=== PATIENT | male | born 1970 | race African-American/Black ===

== ENCOUNTER → 2020-12-20 00:51 | Outpatient (CLI) | payer BC, SELFPAY ==
[2020-12-20 19:12] LABS: SARS-CoV-2 RNA PCR Negative
== END ==
PROVIDERS: PCP Emergency Medicine; Visit Provider Internal Medicine Gastroenterology
DX: Z01.812 Encounter for preprocedural laboratory examination (principal); Z20.822 Contact with and (suspected) exposure to COVID-19
CPT/HCPCS: C9803; U0003; U0005

== ENCOUNTER 2020-12-23 01:41 | Day surgery (SDC) | payer BC, SELFPAY ==
[2020-12-11 14:01] VITALS: BMI 43.9
[2020-12-23 09:17] LABS: Glucose Point of Care 192 (65-105)
[2020-12-23 09:20] VITALS: BP 155/92; PULSE 77; RESP 20; TEMP 36.6; O2SAT 96; BMI 44.3
[2020-12-23] MEDS: LACTATED RINGERS 1,000 ML 150 ML IV CONT (09:33)
--- NOTE | 2020-12-23 09:53 | PM.HPGS ---
History of Present Illness History of Present Illness Consent: Risks, benefits, and alternatives have been discussed and questions answered. Patient agrees to proceed with procedure. Chief complaint: neoplasm screening Narrative: Rg Gutierrez is a 50 year old male referred for colon cancer screening. Review of Systems Review of Systems: All systems reviewed & are unremarkable except as noted in HPI and below PMFSH Family History Family History Sibling Patient's sister is in good health Patient's brother is Grandparent Family history of dementia, Onset Age: 94 Social History Social History Smoking packs per day: 0.5 Smoking cigarettes per day: 10.0 Years smoked: 5 Smoking pack-years: 2.50 Smoking status: Former smoker Tobacco type: cigarettes Alcohol intake: never Substance use: never Substance use type: does not use Living arrangements: with family Spiritual care concerns: No Meds Home Medications and Allergies Home Medications Medication Instructions Recorded Confirmed Type sod picosulf 10 mg-magnes 3.5 160 ml PO BID #160 ml 12/10/20 Rx gram-citric 12 gram/160 mL oral solution amlodipine 10 mg PO DAILY 12/11/20 12/11/20 History dulaglutide [Trulicity] mg SUBCUT DAILY 12/11/20 History insulin degludec [Tresiba unit SUBCUT 12/11/20 History FlexTouch U-200] insulin lispro [Humalog KwikPen unit SUBCUT TID 12/11/20 History Insulin] metformin 1,000 mg PO BID 12/11/20 12/11/20 History naproxen 500 mg PO DAILY 12/11/20 12/11/20 History oxycodone-acetaminophen 1 tablet PO BID PRN 12/11/20 12/11/20 History rosuvastatin 20 mg PO DAILY 12/11/20 12/11/20 History Allergies Allergy/AdvReac Type Severity Reaction Status Date / Time No Known Allergies Allergy Verified 12/23/20 09:18 Vital Signs Vital Signs - 24 hr 12/23/20 09:20 Temperature 36.6 C Pulse Rate 77 Respiratory Rate 20 Blood Pressure 155/92 H Pulse Oximetry 96 Exam Resp: Auscultation: clear to auscultation bilaterally Cardio: Rate: regular rate Rhythm: regular rhythm GI: GI Palp: Yes Soft to palpation and No Tenderness to palpation present (GI) Assessment and Plan Assessment and plan (1) Colon cancer screening: Code(s): Z12.11 - Encounter for screening for malignant neoplasm of colon Status: Acute Assessment and Plan: Colonoscopy with possible biopsy or polypectomy or cautery or injection of substances.
--- NOTE | 2020-12-23 10:09 | WPDANESEPPF ---
Anes - Initial Pre Proc Eval Procedure: Operation Date: 12/23/20 10:30 Proposed Procedures p Screening Colonoscopy - Wil Bernstein MD Date/Time: 12/23/20 10:09 Surgeon: Wil Bernstein MD Pre Op Diagnosis: neoplasm screening Patient Data Age: 50 Gender: M Height: 5 ft 11 in Weight: 144.1 kg Last Vital Signs Temp 98 F 12/23/20 09:20 Pulse 77 12/23/20 09:20 Resp 20 12/23/20 09:20 BP 155/92 H 12/23/20 09:20 Pulse Ox 96 12/23/20 09:20 Allergies Allergy/AdvReac Type Severity Reaction Status Date / Time No Known Allergies Allergy Verified 12/23/20 09:18 Home Medications Medication Instructions Recorded Confirmed Type sod picosulf 10 mg-magnes 3.5 160 ml PO BID #160 ml 12/10/20 Rx gram-citric 12 gram/160 mL oral solution amlodipine 10 mg PO DAILY 12/11/20 12/11/20 History dulaglutide [Trulicity] mg SUBCUT DAILY 12/11/20 History insulin degludec [Tresiba unit SUBCUT 12/11/20 History FlexTouch U-200] insulin lispro [Humalog KwikPen unit SUBCUT TID 12/11/20 History Insulin] metformin 1,000 mg PO BID 12/11/20 12/11/20 History naproxen 500 mg PO DAILY 12/11/20 12/11/20 History oxycodone-acetaminophen 1 tablet PO BID PRN 12/11/20 12/11/20 History rosuvastatin 20 mg PO DAILY 12/11/20 12/11/20 History Laboratory Tests 12/23/20 09:14 POC Capillary Glucose 192 mg/dl H mg/dl (65-105) Patient hx anesthesia problems: none Family hx anesthesia problems: none PMFSH Family History Family History Sibling Patient's sister is in good health Patient's brother is Grandparent Family history of dementia, Onset Age: 94 Social History Social History Smoking packs per day: 0.5 Smoking cigarettes per day: 10.0 Years smoked: 5 Smoking pack-years: 2.50 Smoking status: Former smoker Tobacco type: cigarettes Alcohol intake: never Substance use: never Substance use type: does not use Living arrangements: with family Spiritual care concerns: No Anes - Eval Final PreProcedure Day of Procedure 12/23/20 10:09 Patient weight: morbidly obese Heart: regular rate and rhythm Lungs: clear to auscultation Airway: Mallampati scale class III Neurological: alert and oriented Last oral intake: >/= 8 hours ASA classification: III Anesthetic plan: proceed Anesthesia type and monitoring: general GIVS and standard monitoring Informed Consent: The patient's anesthetic plan and its attendant risks and benefits were discussed with the patient/family/POA. Questions were solicited and answers provided to the satisfaction of the patient/family/POA.
[2020-12-23 10:46] VITALS: BP 97/55; PULSE 110; RESP 20; O2SAT 96
[2020-12-23 10:56] VITALS: BP 102/52; PULSE 107; RESP 20; O2SAT 97
[2020-12-23 11:06] VITALS: BP 125/71; PULSE 92; RESP 24; O2SAT 98
[2020-12-23 11:15] LABS: Glucose Point of Care 191 (65-105)
== END 2020-12-23 11:23 | disposition home or self-care (01) ==
PROVIDERS: PCP Emergency Medicine; Visit Provider Internal Medicine Gastroenterology
PROC: 0DJD8ZZ Inspection of Lower Intestinal Tract, Via Natural or Artificial Opening Endoscopic (ICD-10-PCS; CPT 45378; principal; 2020-12-23 10:30)
DX: Z12.11 Encounter for screening for malignant neoplasm of colon (principal); Z79.4 Long term (current) use of insulin; Z79.84 Long term (current) use of oral hypoglycemic drugs; Z87.891 Personal history of nicotine dependence; E66.01 Morbid (severe) obesity due to excess calories; Z68.41 Body mass index [BMI] 40.0-44.9, adult
CPT/HCPCS: 45378; 82948; J2704; J7120

== ENCOUNTER 2022-05-10 07:16 | Outpatient (CLI) | payer BC, SELFPAY ==
--- NOTE | ~2022-05-10 | NM_ITS ---
EXAMINATION: NM hepatobiliary w pharm DATE: 05/10/2022 09:52 INDICATION: Right upper quadrant abdominal pain. COMPARISON: Ultrasound 05/10/2022 TECHNIQUE: 5 mCi Tc-99m mebrofenin (Choletec) was administered intravenously. Scintigraphic images o f the abdomen were obtained for one hour. Then, 2.6 mcg sincalide (Kinevac) IV was administered, and imaging was continued for 30 minutes. FINDINGS: There is normal clearance of radiotracer from the blood pool. There is homogeneous tracer u ptake by the liver. Activity progresses to the bowel and gallbladder. Gallbladder ejection fraction (GBEF) was 89%. Note that most patients with gallbladder dysfunction have GBEF < 35%, which overlaps with the broad normal range of 10-90%. IMPRESSION: 1. Normal hepatobiliary scintigraphy. Reviewed, dictated and finalized at location A.
--- NOTE | ~2022-05-10 | US_ITS ---
US right upper quadrant INDICATION: Abdomen pain PROCEDURE: Realtime right upper abdominal ultrasound. COMPARISON: No prior studies for comparison. FINDINGS: The pancreas is normal without focal mass or pancreatic ductal dilation. Liver echotexture is increased, consistent with fatty infiltration. There is normal directional flow in the portal ve in. The gallbladder is normal without stones, gallbladder wall thickening or pericholecystic fluid. Comm on bile duct measures 5 mm. No sonographic Chaney's sign. IMPRESSION: 1: Hepatic steatosis. Reviewed, dictated and finalized at location A. IMPRESSION: 1: Hepatic steatosis.
== END 2022-05-10 07:17 | disposition home or self-care (01) ==
PROVIDERS: PCP Emergency Medicine; Visit Provider Surgery
DX: R10.11 Right upper quadrant pain (principal); K76.0 Fatty (change of) liver, not elsewhere classified
CPT/HCPCS: 76705; 78227; A9537; J2805

== ENCOUNTER 2022-08-02 01:43 | Day surgery (SDC) | payer BC, SELFPAY ==
[2022-07-21 10:52] VITALS: BMI 40.5
[2022-08-02 11:17] VITALS: BP 165/94; PULSE 85; RESP 22; TEMP 37.5; O2SAT 98
[2022-08-02] MEDS: LACTATED RINGERS 1,000 ML 150 ML IV CONT (11:26)
--- NOTE | 2022-08-02 12:05 | PM.HPGS ---
History of Present Illness History of Present Illness Consent: Risks, benefits, and alternatives have been discussed and questions answered. Patient agrees to proceed with procedure. Chief complaint: epigastric pain Narrative: Rg Gutierrez is a 51 year old male who Reports chronic intermittent right upper quadrant pain for the last 3 years even prior to his gastric bypass.? He describes as a ?ache?-denies any radiation of the pain into his back or shoulders.? He states this can occur immediately with eating specifically if he eats something warm and then gradually improve over several hours.? He states it can also occur her even without eating when he is driving or laying down the morning.? He will rub the area and will somewhat help. He reports heartburn after eating something like pizza or hot mustard. Although he has lost at least 50 lb after his bypass, he Has gained weight, about 20 lb, over the last several months.? He denies any nausea, vomiting with the pain.?? Review of Systems Review of Systems: All systems reviewed & are unremarkable except as noted in HPI and below PMFSH Past Medical History Medical History Diabetes Epigastric pain Heartburn Hypertension Morbid obesity with BMI of 40.0-44.9, adult Prostate cancer RUQ abdominal pain Sleep apnea Surgical History Surgical History H/O elbow surgery S/P carpal tunnel release S/P gastric sleeve procedure Family History Family History Sibling Patient's sister is in good health Patient's brother is Grandparent Family history of dementia, Onset Age: 94 Father Malignant neoplasm of prostate Mother Breast cancer Unknown Hypertension Social History Social History Smoking packs per day: 0.5 Smoking cigarettes per day: 10.0 Years smoked: 5 Smoking pack-years: 2.50 Smoking status: Former smoker Tobacco type: cigarettes Alcohol intake: never Substance use: never Substance use type: does not use Living arrangements: with family Spiritual care concerns: No Meds Home Medications and Allergies Home Medications Medication Instructions Recorded Confirmed Type amlodipine 10 mg tablet 10 mg PO DAILY 12/11/20 07/21/22 History oxycodone-acetaminophen 7.5 mg-325 1 tablet PO BID PRN Pain 12/11/20 07/21/22 History mg tablet rosuvastatin 20 mg tablet 20 mg PO DAILY 12/11/20 07/21/22 History pregabalin 50 mg capsule (Lyrica) 50 mg PO BID 04/14/22 07/21/22 History losartan 50 mg tablet 50 mg PO DAILY 07/16/22 07/21/22 History omeprazole 40 mg capsule,delayed 40 mg PO DAILY #30 caps 07/16/22 07/21/22 Rx release duloxetine 30 mg capsule,delayed 30 mg PO DAILY 07/21/22 07/21/22 History release sildenafil 100 mg tablet (Viagra) 100 mg PO DAILY PRN Erectile 07/21/22 07/21/22 History Dysfunction tamsulosin 0.4 mg capsule 0.4 mg PO HS 07/21/22 07/21/22 History Allergies Allergy/AdvReac Type Severity Reaction Status Date / Time No Known Allergies Allergy Verified 08/02/22 11:16 Vital Signs Vital Signs - 24 hr 08/02/22 11:17 Temperature 37.5 C Pulse Rate 85 Respiratory Rate 22 H Blood Pressure 165/94 H Pulse Oximetry 98 Oxygen Delivery Room Air Exam Const: General: alert Nutritional Appearance: obese Orientation/consciousness: patient oriented x3 Resp: Auscultation: clear to auscultation bilaterally Cardio: Rhythm: regular rhythm GI: Inspection: obesity GI Palp: Yes Soft to palpation and No Tenderness to palpation present (GI) Neuro: General: patient oriented x3 Assessment and Plan Assessment and plan (1) Epigastric pain: Code(s): R10.13 - Epigastric pain Status: Acute Assessment and Plan: EGD with possible biopsy or dilatation or
--- NOTE | 2022-08-02 12:13 | WPDANESEPPF ---
Anes - Initial Pre Proc Eval Procedure: Operation Date: 08/02/22 13:00 Proposed Procedures p Esophagogastroduodenoscopy - Wil Bernstein MD Date/Time: 08/02/22 12:13 Surgeon: Wil Bernstein MD Pre Op Diagnosis: epigastric pain Patient Data Age: 51 Gender: M Height: 1.8 m Weight: 130.6 kg Last Vital Signs Temp 37.5 C 08/02/22 11:17 Pulse 85 08/02/22 11:17 Resp 22 H 08/02/22 11:17 BP 165/94 H 08/02/22 11:17 Pulse Ox 98 08/02/22 11:17 O2 Del Method Room Air 08/02/22 11:17 Allergies Allergy/AdvReac Type Severity Reaction Status Date / Time No Known Allergies Allergy Verified 08/02/22 11:16 Home Medications Medication Instructions Recorded Confirmed Type amlodipine 10 mg tablet 10 mg PO DAILY 12/11/20 07/21/22 History oxycodone-acetaminophen 7.5 mg-325 1 tablet PO BID PRN Pain 12/11/20 07/21/22 History mg tablet rosuvastatin 20 mg tablet 20 mg PO DAILY 12/11/20 07/21/22 History pregabalin 50 mg capsule (Lyrica) 50 mg PO BID 04/14/22 07/21/22 History losartan 50 mg tablet 50 mg PO DAILY 07/16/22 07/21/22 History omeprazole 40 mg capsule,delayed 40 mg PO DAILY #30 caps 07/16/22 07/21/22 Rx release duloxetine 30 mg capsule,delayed 30 mg PO DAILY 07/21/22 07/21/22 History release sildenafil 100 mg tablet (Viagra) 100 mg PO DAILY PRN Erectile 07/21/22 07/21/22 History Dysfunction tamsulosin 0.4 mg capsule 0.4 mg PO HS 07/21/22 07/21/22 History Patient hx anesthesia problems: none Family hx anesthesia problems: none Results Review: All pre-operative results and documents have been reviewed as part of the pre-operative evaluation. [facility] Past Medical History Medical History Diabetes Epigastric pain Heartburn Hypertension Morbid obesity with BMI of 40.0-44.9, adult Prostate cancer RUQ abdominal pain Sleep apnea Surgical History Surgical History H/O elbow surgery S/P carpal tunnel release S/P gastric sleeve procedure Family History Family History Sibling Patient's sister is in good health Patient's brother is Grandparent Family history of dementia, Onset Age: 94 Father Malignant neoplasm of prostate Mother Breast cancer Unknown Hypertension Social History Social History Smoking packs per day: 0.5 Smoking cigarettes per day: 10.0 Years smoked: 5 Smoking pack-years: 2.50 Smoking status: Former smoker Tobacco type: cigarettes Alcohol intake: never Substance use: never Substance use type: does not use Living arrangements: with family Spiritual care concerns: No Anes - Eval Final PreProcedure Day of Procedure 08/02/22 12:13 Patient weight: morbidly obese Heart: regular rate and rhythm Lungs: clear to auscultation Airway: Mallampati scale class III Neurological: alert and oriented Last oral intake: >/= 8 hours ASA classification: III Emergent: no Anesthetic plan: proceed Anesthesia type and monitoring: general GIVS and standard monitoring Results Review: All pre-operative results and documents have been reviewed as part of the pre-operative evaluation. Informed Consent: The patient's anesthetic plan and its attendant risks and benefits were discussed with the patient/family/POA. Questions were solicited and answers provided to the satisfaction of the patient/family/POA.
[2022-08-02 13:08] VITALS: BP 150/92; PULSE 80; RESP 23; O2SAT 97
[2022-08-02 13:18] VITALS: BP 153/97; PULSE 75; RESP 22; O2SAT 98
[2022-08-02 13:28] VITALS: BP 159/94; PULSE 73; RESP 18; O2SAT 97
== END 2022-08-02 13:35 | disposition home or self-care (01) ==
PROVIDERS: PCP Emergency Medicine; Visit Provider Internal Medicine Gastroenterology
PROC: 0DJ08ZZ Inspection of Upper Intestinal Tract, Via Natural or Artificial Opening Endoscopic (ICD-10-PCS; CPT 43235; principal; 2022-08-02 13:00)
DX: R10.11 Right upper quadrant pain (principal); Z98.84 Bariatric surgery status; I10 Essential (primary) hypertension; E11.9 Type 2 diabetes mellitus without complications; G47.30 Sleep apnea, unspecified; E66.01 Morbid (severe) obesity due to excess calories; Z68.41 Body mass index [BMI] 40.0-44.9, adult; Z87.891 Personal history of nicotine dependence
CPT/HCPCS: 43239; 87081; J2704; J3010; J7120

== ENCOUNTER 2025-08-21 12:15 | Outpatient (CLI) | payer OTHER, SELFPAY ==
--- NOTE | 2025-08-21 14:02 | NEURO_ITS ---
Impression: # Diabetic complains of tingling in right lower extremity. ? 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 ? # Needle/ EMG exam neurogenic distally more than proximally. Nerve Conduction Studies ?Stim Site NR Peak (ms) P-T Amp (?V) Site1 Site2 Delta-P (ms) Dist (cm) Kit (m/s) Left Sup Fibular Anti Sensory (Ant Lat Mall) 14 cm ? 3.1 7.6 14 cm Ant Lat Mall 3.1 16.0 52 Right Sup Fibular Anti Sensory (Ant Lat Mall)??? NO RESPONSE 14 cm NR 14 cm Ant Lat Mall 16.0 Left Sural Anti Sensory (Lat Mall) Calf ? 3.6 5.1 Calf Lat Mall 3.6 16.0 44 Right Sural Anti Sensory (Lat Mall)??? NO RESPONSE Calf NR Calf Lat Mall 16.0 ?Stim Site NR Onset (ms) O-P Amp (mV) Site1 Site2 Delta-0 (ms) Dist (cm) Kit (m/s) Left Peroneal Motor (Vastus Med) Ankle ? 3.6 3.0 Popit Ankle 10.2 44.0 43 Popit ? 13.8 1.9 Right Peroneal Motor (Vastus Med) Ankle ? 3.8 2.9 Popit Ankle 9.5 44.0 46 Popit ? 13.3 3.4 Left Tibial Motor (Abd Kelly Brev) Ankle ? 4.5 0.6 Knee Ankle 10.9 47.0 43 Knee ? 15.4 0.2 Right Tibial Motor (Abd Kelly Brev)??? NO RESPONSE Ankle NR F Wave Studies ?NR F-Lat (ms) L-R F-Lat (ms) Left Peroneal (Mrkrs) (EDB) ? 55.04 3.48 Right Peroneal (Mrkrs) (EDB) ? 58.52 3.48 Left Tibial (Mrkrs) (Abd Hallucis)??? DISPERSED RESPONSE NR Right Tibial (Mrkrs) (Abd Hallucis)??? DISPERSED RESPONSE NR Electromyography ?Side Muscle Nerve Root Ins Act Fibs Amp Dur Recrt Comment Right AntTibialis Dp Br Fibular L4-5 Nml Nml Nml >12ms +2 Right Gastroc Tibial S1-2 Nml Nml Nml >12ms +2 Right Fibularis Long Sup Br Fibular L5-S1 Nml Nml Nml Nml +2 Right Flex Dig Long Tibial L5-S2 Nml Nml Nml Nml Nml Right Ext Dig Brev Dp Br Fibular L5, S1 Nml Nml Nml Nml Nml Right QuadratusFem QuadFemoris L4-5, S1 Nml Nml Nml Nml Nml Left AntTibialis Dp Br Fibular L4-5 Nml Nml Decr >12ms +1 Left Gastroc Tibial S1-2 Nml Nml Decr >12ms +1 Left Fibularis Long Sup Br Fibular L5-S1 Nml Nml Decr >12ms +1 Left Flex Dig Long Tibial L5-S2 Nml Nml Nml Nml Nml Left Ext Dig Brev Dp Br Fibular L5, S1 Nml Nml Nml Nml Nml Left QuadratusFem QuadFemoris L4-5, S1 Nml Nml Nml Nml Nml
== END 2025-08-21 12:16 | disposition home or self-care (01) ==
PROVIDERS: PCP Emergency Medicine; Visit Provider Emergency Medicine
DX: G57.81 Other specified mononeuropathies of right lower limb (principal); R20.2 Paresthesia of skin; E11.69 Type 2 diabetes mellitus with other specified complication
CPT/HCPCS: 95886; 95910